=== PATIENT | female | born 1965 | race Caucasian/White ===

== ENCOUNTER → 2016-11-04 | Outpatient (CLI) | payer MEDICAID ==
[~2016-11-04] MED LIST: ALDACTONE25 MG PO; ATIVAN 1 MG1 MG PO; DILAUDID 2MG(HYD2 MG PO; DITROPAN5 MG PO; GLUCOPHAGE1000 MG PO; HUMALOG MI100 UNIT/5 SUB-Q; IBUPROFEN600 MG PO; LANTUS (IN100 UNIT/M SUB-Q; LOPRESSOR50 MG PO; MAGOX 400400 MG PO; MIRALAX PO527 GM/BOT PO; MORPHINE SULFAT15 M1 PO; NEXIUM 24HR22.3 MG PO; PERCOCET 5-3251 EACH PO; PHENERGAN25 M1 PO; PRINIVIL (ZESTR20 MG PO; PROVENTIL OR V6.7 GM INH; TOUJEO SOL300 UNIT/1 SUB-Q; [UNRECOGNIZED DRUG - CODE]
== END | disposition disaster alternative care site (69) ==
LOC: LGSMG 17:03
DX: N28.9 Disorder of kidney and ureter, unspecified (principal); R80.9 Proteinuria, unspecified

== ENCOUNTER → 2017-05-05 | Outpatient (CLI) | payer SELFPAY | LOC: GOPD 04-30 | DX: C50.412 Malignant neoplasm of upper-outer quadrant of left female breast (principal); I10 Essential (primary) hypertension; E78.5 Hyperlipidemia, unspecified; J44.9 Chronic obstructive pulmonary disease, unspecified | CPT/HCPCS: J2250; J3010 ==